=== PATIENT | male | born 1975 | race Caucasian/White ===

== ENCOUNTER 2023-11-08 17:58 | Emergency (ER) | payer OTHER, SELFPAY ==
[2023-11-08 18:02] VITALS: BP 187/112
[2023-11-08 19:21] VITALS: BMI 41.2
[2023-11-08 19:38] VITALS: BP 144/68
[2023-11-08 19:44] LABS: % Basophils 0.6 % (0-2); % Eosinophils 1.5 % (0-6); % Immature Granulocytes 0.6 % (0-0.5); % Lymphocytes 30.6 % (20.5-51.1); % Monocytes 8.5 % (1.7-9.3); % Neutrophils 58.2 % (42.2-75.2); Absolute Basophils 0.1 10^3/uL (0-0.2); Absolute Eosinophils 0.1 10^3/uL (0-0.7); Absolute Immature Granulocytes 0.1 10^3/uL (0-0.05); Absolute Lymphocytes 2.4 10^3/uL (1.2-3.4); Absolute Monocytes 0.7 10^3/uL (0.1-0.6); Absolute Neutrophils 4.6 10^3/uL (1.4-6.5); Hematocrit 42.1 % (39.0-52.0); Hemoglobin 15.5 g/dL (13.0-18.0); Mean Corp Hgb Conc. 36.8 g/dL (33.0-37.0); Mean Corpuscular Volume 81.6 fL (80.0-94.0); Mean Platelet Volume 9.5 fL (7.4-10.4); Nucleated Red Blood Cells % 0 % (-); Platelet Count 180 10^3/uL (130-400); Red Blood Cell Count 5.16 10^6/uL (4.70-6.10); Red Cell Dist. Width 12.2 % (11.5-14.5); White Blood Cell Count 7.9 10^3/uL (4.8-10.8)
[2023-11-08 20:04] LABS: ALT (SGPT) 46 U/L (0-50); AST (SGOT) 32 U/L (17-59); Alkaline Phosphatase 61 U/L (38-126); Blood Urea Nitrogen 14 mg/dl (9-20); Calcium 9.2 mg/dl (8.4-10.2); Carbon Dioxide 32 mmol/L (22-30); Chloride 103 mmol/L (98-107); Estimated Creatinine Clearance > 125 ml/min; Glucose 86 mg/dl (70-99); Potassium 3.7 mmol/L (3.5-5.1); Sodium 143 mmol/L (135-145); Total Bilirubin 0.7 mg/dl (0.2-1.3); Total Protein 6.8 g/dl (6.3-8.2); eGFR > 60.00
[2023-11-08 20:07] LABS: Troponin I 0.017 ng/ml
[2023-11-08 21:35] LABS: TSH Reflex To Free T4 1.33 uIU/ml (0.47-4.68)
--- NOTE | 2023-11-08 22:17 | ED.GENMED ---
History of Present Illness
<Kristen Lopez NP - Last Filed: 11/08/23 22:39>
General
Chief Complaint: Blood Pressure Problem
Source: patient
Exam Limitations: none
Time Seen by Provider: 11/08/23 19:46
Nursing documentation reviewed up to this point in time: agreed with
History of Present Illness
History of Present Illness:
Patient to ED with complaint of sudden onset of flushing. States he was standing in kitchen cooking when flushing started. States the 'whites of my eyes turned red'. He felt this was due to his BP being elevated due to increased stress at work..
Symptoms only lasted 1-2 minutes and resolved. He drove self to ED for eval. Denies fever/chills, recent illness. NO n/v/d. Denies any chest pain or pressure. No SOB. No prior history of same. Currently asymptomatic.
Past History
<Kristen Lopez NP - Last Filed: 11/08/23 22:39>
Past History
ED Past Medical History: HTN, Hypercholesterolemia, NIDDM and Psychiatric (Anxiety)
Social History
Tobacco: Non-smoker
Alcohol: None
Drug: None
Personal: Other (Noncontributory)
Living: with family
Employment: Employed
Family History
Family History: Other (Noncontributory)
Review of Systems
<Kristen Lopez NP - Last Filed: 11/08/23 22:39>
Review of Systems
Allergies reviewed?: Yes
All Other Systems: ROS reviewed and negative except as documented in HPI and ROS
Constitutional: Reports other (felt flush for 1-2 minutes)
EENT: Reports no symptoms
Respiratory: Reports no symptoms
Cardiac: Reports other (elevated BP reading at home)
ABD/GI: Reports no symptoms
: Reports no symptoms
Musculoskeletal: Reports no symptoms
Neurological: Reports no symptoms
Psychiatric: Reports no symptoms
Phy Exam
<Kristen Lopez NP - Last Filed: 11/08/23 22:39>
General Physical Exam
General Presentation: well appearing and no apparent distress
General age: appears stated age
General Skin: warm and dry
General Habitus: normal
General Mental: alert
General Hydration: appears well hydrated
Eye Exam
Eye Exam: PERRL, EOMI, conjunctiva normal and globe normal
Cardiovascular Exam
Cardiovascular Exam: regular rate/rhythm and no edema
Pulmonary Exam
Pulmonary Exam: lungs clear and no respiratory distress
Musculoskeletal Exam
Musculoskeletal Exam: full ROM and neuro vasc intact
Skin Exam
Skin Exam: normal color, warm/dry and no rash
Psychiatric Exam
Psychiatric Exam: normal mood/affect
Course
<Kristen Lopez SYSTEM DEVELOPER ASSOCIATE MANAGER - Last Filed: 11/08/23 22:39>
Orders/Labs/Results
Orders:
Orders
11/08/23 18:04
EKG [Electrocardiogram (*1)] Urgent
Reason for Study: Hypertension, Benign
EKG- Treatment ONCE
11/08/23 19:38
Complete Blood Count/With Diff Urgent
Comprehensive Metabolic Panel Urgent
TSH Reflex To Free T4 Urgent
Comment: ADD ON
Troponin I Urgent
11/08/23 20:28
Add On- LAB Urgent
Tests Added?: TSH reflex free T4
Abnormal Lab Results
11/08/23
19:38
Abs Immat Gran (auto) 0.1 H 10^3/uL
(0-0.05)
Absolute Monos (auto) 0.7 H 10^3/uL
(0.1-0.6)
Immature Gran % 0.6 H %
(0-0.5)
Carbon Dioxide 32 H mmol/L
(22-30)
11/08/23 19:38
11/08/23 19:38
Vital Signs
Initial and Last Documented VS:
Initial Vital Signs
Temp Pulse Resp BP Pulse Ox
98.2 F 92 18 187/112 96
11/08/23 18:02 11/08/23 18:02 11/08/23 18:02 11/08/23 18:02 11/08/23 18:02
Last Documented Vital Signs
Temp Pulse Resp BP Pulse Ox
98.2 F 90 24 144/68 96
11/08/23 18:02 11/08/23 20:23 11/08/23 19:38 11/08/23 19:38 11/08/23 18:02
<Pascale Granger, DO - Last Filed: 11/09/23 07:00>
Orders/Labs/Results
Orders:
Orders
11/08/23 18:04
EKG [Electrocardiogram (*1)] Urgent
Reason for Study: Hypertension, Benign
EKG- Treatment ONCE
11/08/23 19:38
Complete Blood Count/With Diff Urgent
Comprehensive Metabolic Panel Urgent
TSH Reflex To Free T4 Urgent
Comment: ADD ON
Troponin I Urgent
11/08/23 20:28
Add On- LAB Urgent
Tests Added?: TSH reflex free T4
Abnormal Lab Results
11/08/23
19:38
Abs Immat Gran (auto) 0.1 H 10^3/uL
(0-0.05)
Absolute Monos (auto) 0.7 H 10^3/uL
(0.1-0.6)
Immature Gran % 0.6 H %
(0-0.5)
Carbon Dioxide 32 H mmol/L
(22-30)
11/08/23 19:38
11/08/23 19:38
Vital Signs
Initial and Last Documented VS:
Initial Vital Signs
Temp Pulse Resp BP Pulse Ox
98.2 F 92 18 187/112 96
11/08/23 18:02 11/08/23 18:02 11/08/23 18:02 11/08/23 18:02 11/08/23 18:02
Last Documented Vital Signs
Temp Pulse Resp BP Pulse Ox
98.2 F 90 24 144/68 96
11/08/23 18:02 11/08/23 20:23 11/08/23 19:38 11/08/23 19:38 11/08/23 18:02
<Kristen Lopez NP - Last Filed: 11/08/23 22:39>
*Critical Care Note
Total Time (30-74mins, 75-104mins- exclusive of procedures): Not Applicable
<Kristen Lopez NP - Last Filed: 11/08/23 22:39>
Update Note
Update Note:
Labs reviewed. No concerning findings on exam. He remains asymptomatic in ED. Reports compliance with his BP meds at home however he remains mildly hypertensive here. He feels this is due to increased stress at work.He will follow up with PCP
for further monitoring. He is discharged home, given instructions on s/s to return ot ED and he is agreeable to plan.
ED Attending Note
<Kristen Lopez NP - Last Filed: 11/08/23 22:39>
-
Portions of this chart may have been created with voice recognition software.� Occasional wrong word or��sound alike� substitutions may have occurred due to the inherent limitations of voice recognition software.
<Pascale Granger DO - Last Filed: 11/09/23 07:00>
ED Attending Note
Patient seen and examined by attending physician: Yes
I performed a history and physical exam of patient and discussed management with resident, I reviewed resident's note and agree with documented findings and plan of care.: Yes
ED Attending Note:
48-year-old gentleman with history of hypertension, maintained on lisinopril, admits to not taking his blood pressure medicine today and presents with a sense of flushing of his face, concern for elevated blood pressure. He has history of anxiety,
chronically maintained on Lexapro and admits to significant increased stress recently.
He denies headache, denies chest pain or shortness of breath.
Feeling improved since arrival to the ED.
Initial blood pressure significantly elevated 187/112. Improved to 144/68 without intervention.
Labs are unremarkable.
EKG is unremarkable and unchanged from previous, September 2018.
Patient is eager to be discharged to home.
Due to significant work related stress he requests an out of work note until after which has been provided.
Encouraged he remain compliant with his daily antihypertensive medication along with prompt follow-up with PCP for recheck.
Discharge Plan
Departure
Patient Disposition: Home (Routine Discharge)
Date of Disposition: 11/08/23
Time of Disposition: 22:10
Patient with high blood pressure during this ER visit?: No
Condition: Good
Discharge Problem:
Accelerated essential hypertension
Instructions: High Blood Pressure (DC), Stress
Prescriptions:
No Action
ibuprofen 600 MG tablet
600 mg PO Q6H Qty: 30 0RF
levofloxacin 500 MG tablet
500 mg PO DAILY Qty: 9 0RF
lisinopril [Prinivil] 40 MG tablet
40 mg PO DAILY
escitalopram oxalate 20 MG tablet
20 mg PO DAILY
meclizine 25 MG tablet
25 mg PO Q8HPRN PRN (Reason: nausea or vertigo) Qty: 20 0RF
ciprofloxacin-hydrocortisone [Cipro HC] 10 ML drops,suspension
2 drops OT QID Qty: 1 0RF
Rx Instructions:
2 drops right ear 4 times per day
ciprofloxacin HCl [Cipro] 500 MG tablet
500 mg PO BID Qty: 14 0RF
Referrals:
Charlie Win MD [Family Provider] - Call in 1-3 days for appt
Stand Alone Forms: Return to Work
Interventions
Interventions:
*Risk Screen - Suicide Last Done: 11/08/23 19:21
*General Assessment Last Done: 11/08/23 19:21
*Neglect/Abuse Screening Last Done: 11/08/23 19:21
ED- Fall Risk Assessment Last Done: 11/08/23 22:22
*ED COVID-19 Vaccine History Last Done: 11/08/23 19:21
*Nursing Disposition Last Done: 11/08/23 22:22
ED- Cardiac Assessment Last Done: 11/08/23 19:21
ED- Neurological Assessment Last Done: 11/08/23 19:21
ED- Pulmonary Assessment Last Done: 11/08/23 19:21
Discharge Date and Time
Discharge Date/Time: 11/08/23 22:23
Print Language: SCOTTISH
== END 2023-11-08 22:23 | disposition home or self-care (01) ==
LOC: EMR 17:58
PROVIDERS: EMERGENCY PHYSICIAN Emergency Medicine; FAMILY PHYSICIAN Family Medicine
DX: I10 Essential (primary) hypertension (principal); E78.00 Pure hypercholesterolemia, unspecified; E11.9 Type 2 diabetes mellitus without complications; F41.9 Anxiety disorder, unspecified; Z56.6 Other physical and mental strain related to work
CPT/HCPCS: 99283; 80053; 84443; 84484; 85025; 93005

== ENCOUNTER 2024-10-26 06:25 | Day surgery (SDC) | payer OTHER, SELFPAY ==
[2024-10-26 07:21] LABS: Glucose - Point of Care 164 mg/dl (70-99)
== END 2024-10-26 09:07 | disposition home or self-care (01) ==
LOC: GI 06:25
PROVIDERS: ATTENDING PHYSICIAN Internal Medicine Gastroenterology
DX: Z12.11 Encounter for screening for malignant neoplasm of colon (principal); K64.8 Other hemorrhoids; D12.3 Benign neoplasm of transverse colon; K63.5 Polyp of colon; K62.1 Rectal polyp; Z83.710 Family history of adenomatous and serrated polyps
CPT/HCPCS: 45385; 45380; 82962; 88305